=== PATIENT | female | born 1960 | race Caucasian/White ===

== ENCOUNTER → 2020-10-31 | Day surgery (SDC) | payer BC, OTHER ==
[~2020-10-31] MED LIST: AMLODIPINE BESYL5 MG PO; CELEXA 20MG TAB20 MG PO; CLARITIN 10MG T10 MG PO; HYDROCODON-ACE1 EAC4 PO
[2020-10-31 07:08] LABS: HEMOGLOBIN 14.7 gm/dl (12.3-15.3); RED BLOOD COUNT 5.3 M/UL (4.00-5.10); WHITE BLOOD COUNT 7.8 K/UL (4.5-11.0)
[2020-10-31 07:23] LABS: BUN/CREATININE RATIO 15 (0-10)
== END | disposition home or self-care (01) ==
LOC: OR 05:47
PROVIDERS: Orthopaedic Surgery
DX: G56.01 Carpal tunnel syndrome, right upper limb (principal); I10 Essential (primary) hypertension; Z90.710 Acquired absence of both cervix and uterus; Z20.822 Contact with and (suspected) exposure to COVID-19
CPT/HCPCS: 80048; 85025; 93005; J1100; J1885; J2001; J2250; J2405; J2704; J3010; J7120